=== PATIENT | female | born 1965 | race Caucasian/White ===

== ENCOUNTER 2024-10-10 09:51 | Outpatient (OUT) | payer SELFPAY ==
--- NOTE | 2024-10-10 10:14 | XR_ITS ---
The [address] [address] Patient Name: RIAZ FRAGA MRN: [id number] date: 1965 Sex: F Assigned Patient Location: LAB Current Patient Location: LAB Accession/Order Number: [id number] Exam Date: 10/10/2024 10:58 Report Date: 10/10/2024 10:59 At the request of: NON-STAFF PHYSICIAN MD Procedure: XR shoulder RT min 2V RIGHT SHOULDER - 3 views CLINICAL HISTORY: Right shoulder pain, stiffness and decreased range of motion for the past few months. No injury. COMPARISON: None AP, Y and Grashey views were obtained. A small bone island is visualized at the humeral head. There is no acute fracture or dislocation. There is minor hypertrophy at the acromioclavicular joint and minimal sclerosis of greater tuberosity. There are no significant soft tissue abnormalities. XR/XR shoulder RT min 2V IMPRESSION: NO ACUTE BONY FINDINGS. Impression dictated by: Radha Ledesma M.D. 10/10/2024 10:59 AM Dictation Location: [place] [address] Electronically authenticated by: [id number] Y Date: 10/10/2024 10:59
== END 2024-10-10 09:52 | disposition home or self-care (01) ==
LOC: LAB 09:56
DX: Z00.00 Encounter for general adult medical examination without abnormal findings (principal); M54.2 Cervicalgia; I10 Essential (primary) hypertension; I73.9 Peripheral vascular disease, unspecified; E78.00 Pure hypercholesterolemia, unspecified; F41.9 Anxiety disorder, unspecified; E03.9 Hypothyroidism, unspecified; Z72.0 Tobacco use; M75.41 Impingement syndrome of right shoulder
CPT/HCPCS: 36415; 73030; 80053; 80061; 82306; 83036; 84439; 84443; 84550; 85025

== ENCOUNTER 2024-12-01 08:38 | Outpatient (OUT) | payer SELFPAY ==
--- OUTSIDE RECORDS SUMMARY | 2023-07-16 11:09 | XMS_ITS ---
Author Organization The [facility] in [place] Address [address] [place] [address] Care Team Providers Care Museum Guide Name Role Phone None, Unknown or Primary Care Provider Unavailab Reggie Kumar Unavailable [phone] Medications Medication SIG (Take, Route, Frequency, Duration) Notes Start Date End Date Status Cipro 500 MG 1 tablet Orally every 12 hrs for 5 days 07/16/2023 Active Encounters Encounter Location Date Provider Diagnosis [facility] [address] [place] [address] 07/16/2023 Reggie Carrillo Plan Of Treatment Medication Medication Name Sig Start Date Stop Date Notes Cipro 500 MG 1 tablet Orally every 12 hrs for 5 days 07/15 Progress Notes * Shayla SNYDER MDOB:[birth year] (57 yo F)Acc No.[id number]:07/16/2023 Patient: Zulay bhattShayla :1965 A ge:57 Y S ex:Female Address:[address] [place], [address] * Refills Start Cipro Tablet, 500 MG, Orally, 10 Tablet, 1 tablet, every 12 hrs, 5 days, Refills=0 * true * Date: Generated for Printi ng/Faxing/eTransmitting on: 0 12/01/2024 08:41 AM EDT
--- OUTSIDE RECORDS SUMMARY | 2023-07-23 08:20 | XMS_ITS ---
Author Organization [facility] in [place] Address [address] [place] [address] Care Team Providers Care Belt Sander Stone Name Role Phone None, Unknown or Primary Care Provider Unavailab Reggie Kumar Unavailable [phone] REASON FOR VISIT Suture removal Encounters Encounter Location Date Provider Diagnosis [facility] [address] [place] [address] 07/23/2023 Reggie Carrillo Dermatochalasis of right upper eyelid H02.831 and Dermatochalasis of left upper eyelid H02.834 Assessments Encounter Date Diagnosis (ICD Code) Assessment Notes Treatment Notes Treatment Clinical Notes Section Notes 07/23/2023 Dermatochalasis of right upper eyelid (ICD-10 - H02.831) DOING WELL USE OINT BID X 3 DAYS 07/23/2023 Dermatochalasis of left upper eyelid (ICD-10 - H02.834) Plan Of Treatment Treatment Notes Assessment Notes Dermatochalasis of right upper eyelid DOING WELL USE OINT BID X 3 DAYS Progress Notes * Shayla SNYDER MDOB:[birth year] (57 yo F)Acc No.[id number]:07/23/2023 Vision Suture Removal Patient: Zulay Shayla bhatt Provider: Ada Carrillo MD :1965 A ge:57 Y S ex:Female Date:07/23/2023 Address:[address] [place], [place] Pcp:Skyla Dave Check In:12:02 PM ESTCheck O ut:01:21 PM EST Subjective: * Chief Complaints: * S uture removal * Active Problem List F43.[address] ress Modified On:08/01/2016 Status:confirmed I10 Essential Hypertensi on Modified On:08/15/2022 Status:confirmed F41.9 Anxiety Modified On:08/15/2022 Status:confirmed M75.20 Biceps tendonitis, u nspecified laterality Modified On:08/01/2016 Status:confirmed G56.00 Carpal tunnel syndro me, unspecified laterality Modified On:08/01/2016 Status:confirmed H61.20 Impacted cerumen, un specified laterality Modified On:08/01/2016 Status:confirmed F32.9 Depression, unspecif ied depression type Modified On:08/01/2016 Status:confirmed D23.39 Dermoid cyst of skin of nose Modified On:08/01/2016 Status:confirmed R10.13 Dyspepsia Modified On:08/01/2016 Status:confirmed K21.9 Gastroesophageal ref lux disease, esophagitis presence not specified Modified On:08/01/2016 Status:confirmed I10 Essential hypertensi on Modified On:08/01/2016 Status:confirmed H69.80 Eustachian tube dysf unction, unspecified laterality Modified On:08/01/2016 Status:confirmed E78.5 Hyperlipidemia, unsp ecified hyperlipidemia type Modified On:06/30/2022 Status:confirmed E03.9 Hypothyroidism, unsp ecified type Modified On:10/17/2021 Status:confirmed E66.9 Obesity, unspecified obesity severity, unspecified obesity type Modified On:10/17/2021 Status:confirmed L82.1 Seborrheic keratosis Modified On:08/01/2016 Status:confirmed J32.9 Chronic sinusitis, u nspecified location Modified On:08/01/2016 Status:confirmed G56.01 Carpal tunnel syndro me on right Modified On:08/01/2016 Status:confirmed R20.2 Paresthesia of skin Modified On:08/22/2016U Status:confirmed R91.1 Lung nodule Modified On:10/02/2016U Status:confirmed G56.01 Carpal tunnel syndro me of right wrist Modified On:10/12/2016U Status:confirmed M17.0 Primary osteoarthrit is of both knees Modified On:12/11/2016U Status:confirmed M65.331 Trigger middle finge r of right hand Modified On:11/27/2016U Status:confirmed M17.11 Primary osteoarthrit is of right knee Modified On:11/27/2016U Status:confirmed M17.12 Primary osteoarthrit is of left knee Modified On:01/09/2017U Status:confirmed Z72.0 Tobacco abuse Modified On:08/15/2022U Status:confirmed M65.4 De Quervain's tenosy novitis, left Modified On:08/23/2017U Status:confirmed S63.8X2A Tear of left scaphol unate ligament, initial encounter Modified On:12/19/2017U Status:confirmed B07.0 Plantar wart, left f oot Modified On:12/06/2018U Status:confirmed M25.571 Right ankle pain, un specified chronicity Modified On:11/27/2019U Status:confirmed F17.210 Nicotine dependence, cigarettes, uncomplicated Modified On:05/09/2022U Status:confirmed I73.9 PVD (peripheral vasc ular disease) Modified On:08/15/2022U Status:confirmed H02.831 Dermatochalasis of r ight upper eyelid Modified On:05/01/2023U Status:confirmed H02.834 Dermatochalasis of l eft upper eyelid Modified On:05/01/2023U Status:confirmed * Medical History: * Surgical History: * Ocular Surgical History: * Hospitalization/Major Diagno stic Procedure: * Medications: Objective: Assessment: * Assessment: 1. D ermatochalasis of right upper eyelid - H02.831 2 . D ermatochalasis of left upper eyelid - H02.834 Plan: * Treatment: * Procedure Codes: 9 9024 POST OP VISIT * * Sign off status: Completed Visit Status: C HK (Check Out) true * Provider: Ada Carrillo MD Date: 0 07/23/2023 Generated for Low rocha/Boo/Lynette on: 0 12/01/2024 08:43 AM EDT
--- OUTSIDE RECORDS SUMMARY | 2023-10-30 09:20 | XMS_ITS ---
Author Organization The [facility] in [place] Address [address] [place] [address] Care Team Providers Care Home Care Coordinator Name Role Phone None, Unknown or Primary Care Provider Unavailab Reggie Kumar Unavailable [phone] Allergies Allergen (clinical drug ingredient) Drug/Non Drug Allergy documented on EMR Reaction Allergy Type Onset Date Status SEASONAL (uncoded) Unknown Allergy Active Sulfa THROAT CONSTRICT ION YRS AGO Drug Allergy Active Penicillin THROAT CONSTRICT ION YRS AGO Drug Allergy Active REASON FOR VISIT S/P BLEPH 3MO Medications Medication SIG (Take, Route, Frequency, Duration) Notes Start Date End Date Status Cipro 500 MG 1 tablet Orally ever y 12 hrs for 5 days 07/16/2023 Active Levothyroxine Sodium 112 MCG 1 tablet in the morning on an empty stomach Orally Once a day for 90 days Active Cipro 500 MG 1 tablet Orally ever y 12 hrs for 3 day(s) 07/16/2023 Active Losartan Potassium 100 mg TAKE ONE TABLE T BY MOUTH EVERY DAY FOR BLOOD PRESSURE for 90 Active Pletal Active Aspirin 81 MG 1 tablet Orally Once a day for 90 days 08/15/2022 Active Xanax 0.25 MG 1 tablet Orally Maria Del Rosario y PRN for 30 days prn 09/26/2022 Active Gabapentin 300 MG 1 capsule Orally Onc e a day for 30 day(s) 08/25/2022 Not-Taking amLODIPine Besylate 2.5 MG Take 1 Tablet by mouth everyday FOR BLOOD PRESSURE Orally Once a day for 90 days Not-Taking Fluticasone Propionate 50 MCG/ACT 1 spray in each nostril Nasally Once a day for 30 day(s) 03/20/2019 Not-Taking Rosuvastatin Calcium 10 MG 1 tablet Oral ly Once a day for 90 days 08/15/2022 Active Encounters Encounter Location Date Provider Diagnosis [facility] [address] [place] [address] 10/30/2023 Reggie Carrillo S/p bilateral blepharoplasty Z98.890 Assessments Encounter Date Diagnosis (ICD Code) Assessment Notes Treatment Notes Treatment Clinical Notes Section Notes 10/30/2023 S/p bilateral blepharoplasty (ICD-10 - Z98.890) yonathan referral. patient doing well. f/u w/ Dr Elliott Plan Of Treatment Treatment Notes Assessment Notes S/p bilateral blepharoplasty patient doi ng well. f/u w/ Dr Elliott Next Appt Details Follow Up: prn, Reason: SEE DR ELLIOTT Progress Notes * Shayla SNYDER MDOB:[birth year] (58 yo F)Acc No.[id number]:10/30/2023 Patient: Zulay GARZAShayla Provider: Ada Carrillo MD :1965 A ge:58 Y S ex:Female Date:10/30/2023 Address:[address] [place], [place] [address] Pcp:Skyla Dave Check In:01:10 PM ESTCheck O ut:01:40 PM EST Subjective: * Chief Complaints: * S /P BLEPH 3MO * HPI: G eneral: F/U S/P BILAT BLEPH 07/16/23 C/O BUMPY APPEARANCE RUL>JACQUELYN DOING WELL OTHERWISE IS WONDERING IF SHE NEEDS TO ADDRESS NO GTTS. * Active Problem List F43.[address] ress Modified On:08/01/2016W/U Status:confirmed I10 Essential Hypertensi on Modified On:08/15/2022/U Status:confirmed F41.9 Anxiety Modified On:08/15/2022/U Status:confirmed M75.20 Biceps tendonitis, u nspecified laterality Modified On:08/01/2016W/U Status:confirmed G56.00 Carpal tunnel syndro me, unspecified [...] Modified On:08/22/2016U Status:confirmed R91.1 Lung nodule Modified On:10/02/2016 Status:confirmed G56.01 Carpal tunnel syndro me of right wrist Modified On:10/12/2016 Status:confirmed M17.0 Primary osteoarthrit is of both [...] B07.0 Plantar wart, left f oot Modified On:12/06/2018/U Status:confirmed M25.571 Right ankle pain, un specified chronicity Modified On:11/27/2019/U Status:confirmed F17.210 Nicotine dependence, cigarettes, uncomplicated Modified On:05/09/2022U Status:confirmed I73.9 PVD (peripheral vasc ular disease) Modified On:08/15/2022U Status:confirmed H02.831 Dermatochalasis of r ight upper eyelid Modified On:05/01/2023/U Status:confirmed H02.834 Dermatochalasis of l eft upper eyelid Modified On:05/01/2023U Status:confirmed * Medical History: * Surgical History: * Ocular Surgical History: * Hospitalization/Major Diagno stic Procedure: * Medications: T akingAspirin 81 MG Tablet Delayed Release 1 tablet Orally Once a day Cipro(Ciprofloxacin HCl) 500 MG Tablet 1 tablet Orally every 12 hrs Cipro(Ciprofloxacin HCl) 500 MG Tablet 1 tablet Orally every 12 hrs Levothyroxine Sodium 112 MCG Tablet 1 tablet in the morning on an empty stomach Orally Once a day Losartan Potassium 100 mg Tablet TAKE ONE TABLET BY MOUTH EVERY DAY FOR BLOOD PRESSURE Pletal Rosuvastatin Calcium 10 MG Tablet 1 tablet Orally Once a day Xanax(ALPRAZolam) 0.25 MG Tablet 1 tablet Orally Daily PRN , Notes to Pharmacist: prnTaking Aspirin 81 MG Tablet Delayed Release 1 tablet Orally Once a day Taking Cipro(Ciprofloxacin HCl) 500 MG Tablet 1 tablet Orally every 12 hrs Taking Cipro(Ciprofloxacin HCl) 500 MG Tablet 1 tablet Orally every 12 hrs Taking Levothyroxine Sodium 112 MCG Tablet 1 tablet in the morning on an empty stomach Orally Once a day Taking Losartan Potassium 100 mg Tablet TAKE ONE TABLET BY MOUTH EVERY DAY FOR BLOOD PRESSURE Taking Pletal Taking Rosuvastatin Calcium 10 MG Tablet 1 tablet Orally Once a day Taking Xanax(ALPRAZolam) 0.25 MG Tablet 1 tablet Orally Daily PRN , Notes to Pharmacist: prnNot-Taking/PRNamLODIPine Besylate 2.5 MG Tablet Take 1 Tablet by mouth everyday FOR BLOOD PRESSURE Orally Once a day Fluticasone Propionate 50 MCG/ACT Suspension 1 spray in each nostril Nasally Once a day Gabapentin 300 MG Capsule 1 capsule Orally Once a day Not-Taking/PRN amLODIPine Besylate 2.5 MG Tablet Take 1 Tablet by mouth everyday FOR BLOOD PRESSURE Orally Once a day Not-Taking/PRN Fluticasone Propionate 50 MCG/ACT Suspension 1 spray in each nostril Nasally Once a day Not-Taking/PRN Gabapentin 300 MG Capsule 1 capsule Orally Once a day * Allergies: P enicillin: THROAT CONSTRICTION YRS AGOSulfa: THROAT CONSTRICTION YRS AGOSEASONALno[Allergies Verified] Objective: * Vitals: Vision Examination: Aided Acuities OD 20/20-- OLDER GLS OS 20/20 OU 20/20 ? Assessment: * Assessment: 1. S /p bilateral blepharoplasty - Z98.890 (Primary), yonathan referral. Plan: * Treatment: * Procedure Codes: 9 9024 POST OP VISIT * Follow Up: p rn (Reason: SEE DR ELLIOTT) * * Sign off status: Completed Visit Status: C HK (Check Out) true * Provider: Ada Carrillo MD Date: 0 10/30/2023 Generated for Low rocha/Boo/Lynette on: 0 12/01/2024 08:43 AM EDT History and Physical Notes * HPI (History of Present Illness) Category Sub-Category Detail Notes Category Not es General F/U S/P BILAT BLEPH 07/16/23 C/O BUMPY APPEARANCE RUL>JACQUELYN DOING WELL OTHERWISE IS WONDERING IF SHE NEEDS TO ADDRESS NO GTTS
--- OUTSIDE RECORDS SUMMARY | 2024-12-01 08:42 | XMS_ITS | Encounter Summary ---
Author Organization [employer] Address [facility] [address] [place] [address] Care Team Providers Care Senior Marketing Engineer Name Role Phone Skyla Gonzales MD Primary Care Provider [phone] Encounter Details Date Type Department Care Team (Late st Contact Info) Description 12/13/2022 Orders Only [facility] [address] [place] [id number] Ref Prov, [place] [address] Social History Tobacco Use Types Packs/Day Years Used Date Smoking Tobacco: Every Day Cigarettes Smokeless Tobacco: Never Alcohol Use Standard Drinks/Week Comments Never 0 (1 standard drink = 0.6 oz pur e alcohol) Childcare Answer Date Recorded Childcare Unknown 10/22/2018 Employment Answer Date Recorded Employment Unknown 10/22/2018 Purpose - Life Answer Date Recorded Purpose and direction in life Unknown Comments Unknown Sex and Gender Information Value Date Recorded Sex Assigned at Female 12/07/2022 12:11 PM EDT Legal Sex Female 9:03 PM EDT Gender Identity Female 08/16/2022 1:40 PM EDT Sexual Orientation Straight 12/07/2022 12 :11 PM EDT documented as of this encounter Plan of Treatment Upcoming Encounters Date Type Department Care Team (Late st Contact Info) Description 04/22/2025 11:00 AM EST Office Visit [facility] [address] [address] Skyla Gonzales MD [address], [address] [address] documented as of this encounter Visit Diagnoses Not on filedocumented in this encounter Care Teams Senior Marketing Engineer Relationship Specialty Start Date End Date Skyla Gonzales MD [address], [address] [address] PCP - General 02/21/13 documented as of this encounter
--- OUTSIDE RECORDS SUMMARY | 2024-12-01 08:42 | XMS_ITS | Patient Health Record ---
Author Organization The [facility] in [place] Address [address] [place] [address] Care Team Providers Care Material Analyst Name Role Phone None, Unknown or Primary Care Provider Unavailab le Allergies Allergen (clinical drug ingredient) Drug/Non Drug Allergy documented on EMR Reaction Allergy Type Onset Date Status SEASONAL (uncoded) Unknown Allergy Active Sulfa THROAT CONSTRICT ION YRS AGO Drug Allergy Active Penicillin THROAT CONSTRICT ION YRS AGO Drug Allergy Active Reason For Referral No Information Medications Medication SIG (Take, Route, Frequency, Duration) Notes Start Date End Date Status Cipro 500 MG 1 tablet Orally ever y 12 hrs for 5 days 07/16/2023 Active Levothyroxine Sodium 112 MCG 1 tablet in the morning on an empty stomach Orally Once a day for 90 days Active Aspirin 81 MG 1 tablet Orally Once a day for 90 days 08/15/2022 Active Cipro 500 MG 1 tablet Orally ever y 12 hrs for 3 day(s) 07/16/2023 Active Rosuvastatin Calcium 10 MG 1 tablet Oral ly Once a day for 90 days 08/15/2022 Active Xanax 0.25 MG 1 tablet Orally Maria Del Rosario y PRN for 30 days prn 09/26/2022 Active Losartan Potassium 100 mg TAKE ONE TABLE T BY MOUTH EVERY DAY FOR BLOOD PRESSURE for 90 Active Pletal Active Gabapentin 300 MG 1 capsule Orally Onc e a day for 30 day(s) 08/25/2022 Not-Taking amLODIPine Besylate 2.5 MG Take 1 Tablet by mouth everyday FOR BLOOD PRESSURE Orally Once a day for 90 days Not-Taking Fluticasone Propionate 50 MCG/ACT 1 spray in each nostril Nasally Once a day for 30 day(s) 03/20/2019 Not-Taking Immunizations Vaccine Route Administration Date Status Comme nts Flu, Fluzone (24525) 6 mos+, single-dose syringe/vial (8790-5063) Intramuscular 03/23/2015 Pending 23 Mar 2015 Flu, Fluzone (31717) 6 mos+, single-dose syringe/vial (7944-3302) IM Intramuscular 03/20/2019 Administered Pneumococcal (Prevnar 13) Intramuscular 01/21/2015 Pending [id number] 04:55PM Td, Adult, absorbed IM Intramuscular 05/09/2022 Administer ed Tdap Intramuscular 08/02/2011 Pending [id number] 08:29AM Social History Tobacco Use: Social History Observation Description Date Details (start date - stop date) Current Smoker NA - NA Tobacco Use/Smoking Question Answer Notes Patient is a current smoker How many cigarettes a day do you smoke? 6-10 How soon after you wake up do you smoke your fir st cigarette? 31-60 minutes Alcohol Screen (Audit-C) Question Answer Notes Did you have a drink containing alcohol in the p ast year? No Points 0 Interpretation Negative Section Notes: OCCAS SMOKING, INTERMITTANT Problems Problem Type SNOMED Code ICD Code Onset Dates Problem Status W/U Status Risk Notes Problem 25947924 Nicotine dependence, cigarettes, uncomplicated (F17.210) Active confirmed Problem 50750804589458812 Dermatochalasi s of right upper eyelid (H02.831) Active confirmed Problem 903215047902031 Dermatochalasis of left upper eyelid (H02.834) Active confirmed Problem 02611196 Paresthesia of s kin (R20.2) Active confirmed Problem 575714002 PVD (peripheral vascular disease) (I73.9) Active confirmed Problem 22436167 Anxiety (F41.9) Active confirmed Problem 10955611 Essential hypertension (I10) Active confirmed Problem 045273813 Primary osteoarthritis of right knee (M17.11) Active confirmed Problem 250518457 Tobacco abuse (Z72.0) Active confirmed Problem 852310227 Primary osteoarthritis of left knee (M17.12) Active confirmed Problem 721705930 Gastroesophageal reflux disease, esophagitis presence not specified (K21.9) Active confirmed Problem 051103351 Obesity, unspecified obesity severity, unspecified obesity type (E66.9) Active confirmed Problem 738273390 Primary osteoarthritis of both knees (M17.0) Active confirmed Problem 768167910327296 Carpal tunnel syndrome of right wrist (G56.01) Active confirmed Problem 652281260 Lung nodule (R91.1) Active confirmed Problem 622707993 Seborrheic keratosis (L82.1) Active confirmed Problem 593252693 Trigger middle finger of right hand (M65.331) Active confirmed Problem 30686510 Chronic sinusiti s, unspecified location (J32.9) Active confirmed Problem 34356175 Carpal tunnel syndrome, unspecified laterality (G56.00) Active confirmed Problem 58475575233215863 De Quervain's tenosynovitis, left (M65.4) Active confirmed Problem 17951204750852963 Plantar wart, left foot (B07.0) Active confirmed Problem 00578961 Impacted cerumen , unspecified laterality (H61.20) Active confirmed Problem 371557680 Dyspepsia (R10.13) Active confirmed Problem 05560824 Hyperlipidemia, unspecified hyperlipidemia type (E78.5) Active confirmed Problem 08695897 Hypothyroidism, unspecified type (E03.9) Active confirmed Problem 41140818 Depression, unspecified depression type (F32.9) Active confirmed Problem 431236979 Right ankle pain , unspecified chronicity (M25.571) Active confirmed Problem 379475335001858 Carpal tunnel syndrome on right (G56.01) Active confirmed Problem 50781630 Eustachian tube dysfunction, unspecified laterality (H69.80) Active confirmed Problem 98544456 Essential Hypertension (I10) Active confirmed Problem 91667665 Acute reaction t o stress (F43.0) Active confirmed Problem 846884289 Biceps tendoniti s, unspecified laterality (M75.20) Active confirmed Problem 264573275 Dermoid cyst of skin of nose (D23.39) Active confirmed Problem 879413375 Tear of left scapholunate ligament, initial encounter (S63.8X2A) Active confirmed Plan Of Treatment Pending Test Test Name Order Date MG Mammo Digital Screening Bilateral* CLARISSE Ankle Brachial Index (66564) 023 Future Test Test Name Order Date CBC w/ Diff 03/11/2021 CMP - Comprehensive Metabolic Panel 02/12 Lipid Panel 03/11/2021 Magnesium Level 03/11/2021 TSH - Thyroid Stimulating Hormone 2020 Uric Acid 03/11/2021 Free T4 03/11/2021 Hemoglobin Hgb A1c (LC) 03/11/2021 CBC w/ Diff 04/18/2022 CMP - Comprehensive Metabolic Panel 10/2021 Lipid Panel 04/18/2022 TSH - Thyroid Stimulating Hormone 2021 Uric Acid 04/18/2022 Free T4 04/18/2022 Vitamin D, 25-Hydroxy 04/18/2022 Hemoglobin A1C (HA1C) 04/18/2022 Lipid Panel 10/28/2022 CMP - Comprehensive Metabolic Panel 08/2022 Creatine Kinase 11/14/2022 Lipid Panel 11/14/2022 Insurance Providers Payer Name Payer Address Payer Phone Subscriber Number Group Number Insured Name Patient Relationship to Insured Coverage Start Date Coverage End Date [facility] [address] [place] [address] [id number] Shayla Snyder Self - patient is the insured 3 Medications Administered Medication Instructions Date of Administration Dosage Notes Depo-Medrol, 20 mg/mL 10/11/2016 20 mg Depo-Medrol, 40 mg/mL 10/11/2016 40 mg Depo-Medrol, 40 mg/mL 06/05/2017 0.5 mL Depo-Medrol, 40 mg/mL 11/01/2017 0.5 mL Orthovisc 30mg/2mL 11/24/2016 30 mg Orthovisc 30mg/2mL 11/24/2016 30 mg Orthovisc 30mg/2mL 12/01/2016 30 mg Orthovisc 30mg/2mL 12/01/2016 30 mg Orthovisc 30mg/2mL 12/08/2016 30 mg Orthovisc 30mg/2mL 12/08/2016 30 mg Medical (General) History Medical History History ICD Code Acute reaction to stress F43.0 Essential Hypertension I10 Anxiety F41.9 Biceps tendonitis, unspecified lateralit y M75.20 Carpal tunnel syndrome, unspecified late rality G56.00 Impacted cerumen, unspecified laterality H61.20 Depression, unspecified depression type F32.9 Dermoid cyst of skin of nose D23.39 Dyspepsia R10.13 Gastroesophageal reflux disease, esophag itis presence not specified K21.9 Essential hypertension I10 Eustachian tube dysfunction, unspecified laterality H69.80 Hyperlipidemia, unspecified hyperlipidem ia type E78.5 Hypothyroidism, unspecified type E03.9 Obesity, unspecified obesity severity, u nspecified obesity type E66.9 Seborrheic keratosis L82.1 Chronic sinusitis, unspecified location J32.9 Carpal tunnel syndrome on right G56.01 Surgical History Surgery Date(Month/Year) cyst removed rt thigh 02/2019 LT wristt surgery 12/2018 tonsillectomy and adenoidectomy oopherectomy hysterectomy Knee arthroscopy hemorrhoidectomy Elbow surgery Cervical vertebral fusion Hospitalization History Reason Date(Month/Year) SEE SURG HX
--- NOTE | 2024-12-01 08:43 | CT_ITS ---
[address] [address] Patient Name: RIAZ FRAGA MRN: [id number] date: 1965 Sex: F Assigned Patient Location: [facility] Current Patient Location: [facility] Accession/Order Number: [id number] Exam Date: 12/01/2024 09:29 Report Date: 12/01/2024 10:00 At the request of: NON-STAFF PHYSICIAN MD Procedure: CT lung screening low-dose CT CHEST WITHOUT CONTRAST, LOW DOSE SCREENING: CLINICAL DATA: A 59-year old former smoker, COMPARISON: None TECHNIQUE: Noncontrast axial CT scan images of the chest were obtained under the low dose screening CT protocol. Coronal and sagittal reconstructed images were also submitted. FINDINGS: Mediastinum : Suboptimal evaluation due to low-dose technique. Thoracic aorta appears normal in caliber. Pulmonary trunk appears nondilated. No pericardial effusion. No lymphadenopathy. The esophagus is grossly unremarkable. Lungs: No focal consolidation, pneumothorax or pleural effusion. Trachea and distal airways appear patent. Emphysema. Mild bronchial wall thickening. Mild lung scarring. No suspicious noncalcified pulmonary nodule or mass. Upper abdomen: No acute findings. Bony thorax and chest wall: Soft tissues surrounding the chest wall demonstrate no acute findings. Osseous structures demonstrate degenerative change. CT/CT lung screening low-dose IMPRESSION: NO SUSPICIOUS PULMONARY NODULE LUNG - RADS Version 1.0 Assessment: Category 1, Negative (No nodules and definitely benign nodules). Management: Continue annual lung screening with LDCT in 12 months. Impression dictated by: Gregory Womack Jr., D.O. 12/01/2024 10:00 AM Dictation Location: [place] [address] Electronically authenticated by: [id number] Y Date: 12/01/2024 10:00
--- NOTE | 2024-12-01 08:43 | MM_ITS ---
Patient Name: RIAZ FRAGA MR#: [id number] : 1965 Exam Date: 12/01/2024 Ordering Doctor: NON-STAFF PHYSICIAN RADIOLOGY REPORT PROCEDURE: MM TOMOSYNTHESIS SCREENING BI COMPARISON: MAMMO KARLA SCREEN, 09/05/2023. INDICATIONS: Screening Calculator Name NCI Breast Cancer Risk Assessment Tool 5 Year Breast Cancer Risk Not Reported. Lifetime Breast Cancer Risk Not Reported. Personal Breast Cancer No Personal Ovarian Cancer No Treatments None Family Cancers None LOCATION: [facility] BREAST COMPOSITION: There are scattered areas of fibroglandular density. FINDINGS: DIAGNOSTIC CATEGORY 1--NEGATIVE. RIGHT BREAST: No significant suspicious finding. LEFT BREAST: No significant suspicious finding. RECOMMENDATIONS: ROUTINE MAMMOGRAM AND CLINICAL EVALUATION IN 12 MONTHS. PLEASE NOTE: A NORMAL MAMMOGRAM DOES NOT EXCLUDE THE POSSIBILITY OF BREAST CANCER. A CLINICALLY SUSPICIOUS PALPABLE LUMP SHOULD BE BIOPSIED. Dictated by: Gregory Womack DO on 12/02/2024 at 15:46 Approved by: Gregory Womack DO on 12/02/2024 at 15:49
--- OUTSIDE RECORDS SUMMARY | 2024-12-01 08:43 | XMS_ITS | Encounter Summary ---
Author Organization [employer] Address [id number] [address] [place] [address] Care Team Providers Care Cavity Pump Operator Name Role Phone Skyla Gonzales MD Primary Care Provider +1- [phone] Encounter Details Date Type Department Care Team (Late st Contact Info) Description 05/02/2023 Orders Only [facility] [address] [facility] [place] [phone] America Leblanc CMA Social History Tobacco Use Types Packs/Day Years Used Date Smoking Tobacco: Every Day Cigarettes Smokeless Tobacco: Never Alcohol Use Standard Drinks/Week Comments Never 0 (1 standard drink = 0.6 oz pur e alcohol) Childcare Answer Date Recorded Childcare Unknown 10/22/2018 Employment Answer Date Recorded Employment Unknown 10/22/2018 Hunger Screening Answer Date Recorded Within the past 12 months we worried whether our food would run out before we got money to buy more. Never True 05/04/2023 Within the past 12 months th e food we bought just didn't last and we didn't have money to get more. Never True 05/04/2023 Purpose - Life Answer Date Recorded Purpose and direction in life Unknown Comments No Sex and Gender Information Value Date Recorded [...] [facility] [address] [facility] [address] [place] [address] Skyla Gonzales MD [address] [facility] [address] [place] [address] documented as of this encounter Procedures Procedure Name Priority Date/Time Associated Diagnosis Comments CT LOW DOSE LUNG SCREENING Routine 08/23/2022 MAMMOGRAPHY Routine 08/15/2022 COLONOSCOPY Routine 10/27/2015 documented in this encounter Results * CT low dose lung screening (Annual) (08/23/2022) Anatomical Region Laterality Modality Body, Lung, Chest, Body Covera C omputed Tomography us Scanning Provider External IMG CT ORDERABLES Fin al Result * MAMMOGRAPHY (08/15/2022) Anatomical Region Laterality Modality Other us Scanning Provider External HEALTH MAINTENANCE Fi nal Result * COLONOSCOPY (10/27/2015) us Scanning Provider External HEALTH MAINTENANCE Fi nal Result MANUALLY TRANSCRIBED LAB RESULTS documented in this encounter Visit Diagnoses Not on filedocumented in this encounter Care Teams Cavity Pump Operator Relationship Specialty Start Date End Date Skyla Gonzales MD [address], [address] [address] PCP - General 02/21/13 documented as of this encounter
--- OUTSIDE RECORDS SUMMARY | 2024-12-01 08:43 | XMS_ITS | Encounter Summary ---
Author Organization [employer] Address [id number] [address] [place] [address] Care Team Providers Care Bank Vault Attendant Name Role Phone Skyla Gonzales MD Primary Care Provider +1- [phone] Encounter Details Date Type Department Care Team (Late st Contact Info) Description 08/15/2022 Telephone [facility] [address] [place] [address] Mallika Andersen CMA Social History Tobacco Use Types Packs/Day Years Used Date Smoking Tobacco: Never Assessed Childcare Answer Date Recorded Childcare Unknown 10/22/2018 [...] Orientation Straight 12/07/2022 12 :11 PM EDT COVID-19 Exposure Response Date Recorded In the last month, have you been in contact with someone who was confirmed or suspected to have Coronavirus / COVID-19? No / Unsure 08/15/2022 5:16 PM EDT documented as of this encounter Plan of Treatment Upcoming Encounters Date Type Department Care Team (Late st Contact Info) Description 04/22/2025 11:00 AM EST Office Visit [facility] [address] [facility] [address] [place] [address] Skyla Gonzales MD [address], [facility] [address] [place] [address] documented as of this encounter Visit Diagnoses Not on filedocumented in this encounter Care Teams Bank Vault Attendant Relationship Specialty Start Date End Date Skyla Gonzales MD [address], [facility] [address] [place] [address] PCP - General 02/21/13 documented as of this encounter
--- OUTSIDE RECORDS SUMMARY | 2024-12-01 08:43 | XMS_ITS | Encounter Summary ---
Author Organization [employer] Address [facility]-[id number] [address] [place] [address] Care Team Providers Care Filler Block Inserter Remover Name Role Phone Skyla Gonzales MD Primary Care Provider +1- [phone] Reason for Visit * Reason Onset Date Comments Med Refill 11/21/2024 Encounter Details Date Type Department Care Team (Late st Contact Info) Description 11/21/2024 Refill [facility] [address] [place] [address] Paola Lou LPN Anxiety Social History Tobacco Use Types Packs/Day Years Used Date Smoking Tobacco: Every Day Cigarettes Smokeless Tobacco: Never Comments:Occasional smoking no longer daily smoking Alcohol Use Standard Drinks/Week Comments Never 0 (1 standard drink = 0.6 oz pur e alcohol) PHQ-2 Answer Date Recorded Total Score 0 10/20/2024 Childcare Answer Date Recorded Childcare Unknown 10/22/2018 Employment Answer Date Recorded Employment Unknown 10/22/2018 Hunger Screening Answer Date Recorded Within the past 12 months we worried whether our food would run out before we got money to buy more. Never True 10/20/2024 Within the past 12 months th e food we bought just didn't last and we didn't have money to get more. Never True 10/20/2024 Purpose - Life Answer Date Recorded Purpose and direction in life Unknown Comments No Sex and Gender Information Value Date Recorded Sex Assigned at Female 12/07/2022 12:11 PM EDT Legal Sex Female 9:03 PM EDT Gender Identity Female 08/16/2022 1:40 PM EDT Sexual Orientation Straight 12/07/2022 12 :11 PM EDT documented as of this encounter Miscellaneous Notes * Telephone Encounter - Paola Lou LPN - 11/21/2024 9:39 AM EDT Refill alprazolam to dominic documented in this encounter Plan of Treatment Upcoming Encounters Date Type Department Care Team (Late st Contact Info) Description 04/22/2025 11:00 AM EST Office Visit [facility] [address] [facility] [address] [place] [address] Skyla Gonzales MD [address] [place] [address] documented as of this encounter Visit Diagnoses Diagnosis Anxiety Anxiety state, unspecified documented in this encounter Additional Health Concerns Assessment Noted Time PHQ-9 Depression Total Score: 0 10/21/19 25 11:01 AM EDT A Body Mass Index follow-up plan has been documented for the patient 10/20/2024 1:00 PM EDT documented as of this encounter Care Teams Filler Block Inserter Remover Relationship Specialty Start Date End Date Skyla Gonzales MD [address], [address] [place] [address] PCP - General 02/21/13 documented as of this encounter
--- OUTSIDE RECORDS SUMMARY | 2024-12-01 08:43 | XMS_ITS | Encounter Summary ---
Author Organization [facility] Address [facility]-[id number] [address] [place] [address] Care Team Providers Care Big Data Lead Name Role Phone Skyla Gonzales MD Primary Care Provider +1- [phone] Encounter Details Date Type Department Care Team (Late st Contact Info) Description 10/10/2024 Orders Only [facility] [address] [place] [address] Skyla Gonzales MD [address] [place] [address] Cervicalgia; Primary hypertension; PVD (peripheral vascular disease); Pure hypercholesterolemia; Anxiety; Acquired hypothyroidism; Tobacco use; Routine physical examination; Rotator cuff impingement syndrome of right shoulder Social History Tobacco Use Types Packs/Day Years Used Date Smoking Tobacco: Every Day Cigarettes Smokeless Tobacco: Never Comments:Occasional smoking no longer daily smoking Alcohol Use Standard Drinks/Week Comments Never 0 (1 standard drink = 0.6 oz pur e alcohol) PHQ-2 Answer Date Recorded Total Score 0 08/26/2024 Childcare Answer Date Recorded Childcare Unknown 10/22/2018 Employment Answer Date Recorded Employment Unknown 10/22/2018 Hunger Screening Answer Date Recorded Within the past 12 months we worried whether our food would run out before we got money to buy more. Never True 08/26/2024 Within the past 12 months th e food we bought just didn't last and we didn't have money to get more. Never True 08/26/2024 Purpose - Life Answer Date Recorded Purpose [...] Visit [facility] [address] [place] [address] Skyla Gonzales MD [address] [place] [address] documented as of this encounter Procedures Procedure Name Priority Date/Time Associated Diagnosis Comments XR SHOULDER RT MIN 2 VWS Routine 10/10/2024 Rotator cuff impingement syndrome of right shoulder CBC WITH AUTO DIFFERENTIAL Routine 10/10/2024 Cervicalgia Primary hypertension PVD (peripheral vascular disease) Pure hypercholesterolemia Anxiety Acquired hypothyroidism Tobacco use Routine physical examination VITAMIN D 25 HYDROXY Routine 10/10/2024 Cervicalgia Primary hypertension PVD (peripheral vascular disease) Pure hypercholesterolemia Anxiety Acquired hypothyroidism Tobacco use Routine physical examination URIC ACID Routine 10/10/2024 Cervicalgia Primary hypertension PVD (peripheral vascular disease) Pure hypercholesterolemia Anxiety Acquired hypothyroidism Tobacco use Routine physical examination TSH Routine 10/10/2024 Cervicalgia Primary hypertension PVD (peripheral vascular disease) Pure hypercholesterolemia Anxiety Acquired hypothyroidism Tobacco use Routine physical examination T4, FREE Routine 10/10/2024 Cervicalgia Primary hypertension PVD (peripheral vascular disease) Pure hypercholesterolemia Anxiety Acquired hypothyroidism Tobacco use Routine physical examination HEMOGLOBIN A1C Routine 10/10/2024 Cervicalgia Primary hypertension PVD (peripheral vascular disease) Pure hypercholesterolemia Anxiety Acquired hypothyroidism Tobacco use Routine physical examination LIPID PROFILE Routine 10/10/2024 Cervicalgia Primary hypertension PVD (peripheral vascular disease) Pure hypercholesterolemia Anxiety Acquired hypothyroidism Tobacco use Routine physical examination COMPREHENSIVE METABOLIC PANEL Routine 10/10/2024 Cervicalgia Primary hypertension PVD (peripheral vascular disease) Pure hypercholesterolemia Anxiety Acquired hypothyroidism Tobacco use Routine physical examination documented in this encounter Results * Vitamin D 25 hydroxy (10/10/2024) Blood 10/10/2024 us Skyla Dave MD LAB BLOOD ORDERABLES Final Result Performing Organization Address [facility] de Phone Number MANUALLY TRANSCRIBED RESULTS * T4, free (10/10/2024) Blood 10/10/2024 us Skyla Dave MD LAB BLOOD ORDERABLES Final Result Performing Organization Address [facility] de Phone Number MANUALLY TRANSCRIBED RESULTS * Uric acid (10/10/2024) Blood 10/10/2024 us Skyla Dave MD LAB BLOOD ORDERABLES Final Result Performing Organization Address [facility] Phone Number MANUALLY TRANSCRIBED RESULTS * TSH (10/10/2024) Blood 10/10/2024 Result [facility] Skyla Dave MD LAB BLOOD ORDERABLES Edite d Result - Final Performing Organization Address [facility] Phone Number MANUALLY TRANSCRIBED RESULTS * Hemoglobin A1c (10/10/2024) External Hemoglobin A1C 5.5 4.5 - 6.2 % MANUALLY TRANSCRIBED RESULTS Blood 10/10/2024 Result [facility] Skyla Dave MD LAB BLOOD ORDERABLES Edite d Result - Final Performing Organization Address [facility] Phone Number MANUALLY TRANSCRIBED RESULTS * (ABNORMAL) Lipid profile (10/10/2024) External Cholesterol 135 120 - 200 MANUALLY TRANSCRIBED RESULTS External Cholesterol:Hdl 2.0 1.0 - 5.0 MANUALLY TRANSCRIBED RESULTS External Hdl Cholesterol 68(A) <=60 MANUALLY TRANSCRIBED RESULTS External Ldl (Calc) 57.0 0 - 130 MANUALLY TRANSCRIBED RESULTS External Triglycerides 51 27 - 150 MANUALLY TRANSCRIBED RESULTS External Very Low Lipoprotein 10.2 0 - 30 MANUALLY TRANSCRIBED RESULTS Blood 10/10/2024 Result [facility] Skyla Dave MD LAB BLOOD ORDERABLES Edite d Result - Final Performing Organization Address [facility] de Phone Number MANUALLY TRANSCRIBED RESULTS * Comprehensive metabolic panel (10/10/2024) Blood 10/10/2024 Result [facility] us Skyla Dave MD LAB BLOOD ORDERABLES Edite d Result - Final Performing Organization Address [facility] de Phone Number MANUALLY TRANSCRIBED RESULTS * CBC auto differential (10/10/2024) Blood 10/10/2024 Skyla Dave MD LAB BLOOD ORDERABLES Final Result MANUALLY TRANSCRIBED RESULTS * X-ray shoulder right minimum 2 views (10/10/2024) Anatomical Region Laterality Modality MSK, Upper Extremities, Shoulder Right Computed Radiography Skyla Dave MD IMG DIAGNOSTIC IMAGING ORD ERABLES Final Result documented in this encounter Visit Diagnoses Diagnosis Cervicalgia Primary hypertension Unspecified essential hypertension PVD (peripheral vascular disease) Unspecified peripheral vascular disease Pure hypercholesterolemia Anxiety Anxiety state, unspecified Acquired hypothyroidism Unspecified hypothyroidism Tobacco use Routine physical examination [facility]ine [facility] Rotator cuff impingement syndrome of right shoulder documented in this encounter Additional Health Concerns Assessment Noted Time PHQ-9 Depression Total Score: 0 08/27/19 25 2:33 PM EDT A Body Mass Index follow-up plan has been documented for the patient 04/17/2024 7:14 PM EST documented as of this encounter Care Teams Big Data Lead Relationship Specialty Start Date End Date Skyla Gonzales MD [address], [address] [address] PCP - General 02/21/13 documented as of this encounter
--- OUTSIDE RECORDS SUMMARY | 2024-12-01 08:43 | XMS_ITS | Clinical Summary ---
Author Organization [employer] Address [id number] [address] [place] [address] Care Team Providers Care Body Service Team Member Name Role Phone Skyla Gonzales MD Primary Care Provider [phone] Allergies Active Allergy Reactions Criticality Noted Date Comments Penicillins Low 04/08/2021 Throat swelling Sulfa (Sulfonamide Antibiotics) Low 03/15 Throat swelling Medications cyclobenzaprine (FLEXERIL) 5 mg tabletIndicatio ns:Cervicalgia Take 1 tablet (5 mg total) by mouth every 8 (eight) hours as needed for muscle spasms. 30 tablet 1 4 Active aspirin 81 mgIndications:P eripheral vascular disease, unspecified TAKE 1 TABLET (81 MG TOTAL) BY MOUTH EVERY MORNING. 90 tablet 1 4 Active fluticasone propionate (FLONASE) 50 mcg/actuation nasal sprayIndication s:Acute non-recurrent maxillary sinusitis Administer 1 spray into each nostril in the morning. 15 g 2 5 Active rosuvastatin (CRESTOR) 10 mg tabletIndicatio ns:Peripheral vascular disease, unspecified Take 1 tablet (10 mg total) by mouth every morning. 90 tablet 1 5 Active levothyroxine (SYNTHROID, LEVOTHROID) 112 MCG tablet Take 1 tablet (112 mcg total) by mouth in the morning. 90 tablet 1 5 Active losartan (COZAAR) 50 mg tablet Take 1 tablet (50 mg total) by mouth in the morning. 90 tablet 1 5 Active ALPRAZolam (XANAX) 0.25 mg tabletIndicatio ns:Anxiety Take 1 tablet (0.25 mg total) by mouth nightly as needed for anxiety. 30 tablet 5 Active ALPRAZolam (XANAX) 0.25 mg tabletIndicatio ns:Anxiety Take 1 tablet (0.25 mg total) by mouth nightly as needed for anxiety. 30 tablet 5 11/22/19 25 Discontin ued(Reord er) Active Problems Problem Noted Date Diagnosed Date Lipoma 08/30/2023 Occlusive disease, arterial 08/21/2022 Encounters Date Type Department Care Team Description 11/21/2024 Refill [facility] [address] [place] [address] [place] [phone] Paola Lou LPN Anxiety 10/23/2024 Refill [facility] [address] [place] [phone] Skyla Gonzales MD 10/20/2024 11:00 AM EDT Office Visit [facility] [address] [place] [phone] Skyla Gonzales MD Primary hypertension (Primary Dx); Rotator cuff impingement syndrome of right shoulder; Tobacco use; PVD (peripheral vascular disease); Pure hypercholesterolemia; Anxiety; Encounter for screening mammogram for malignant neoplasm of breast; Acquired hypothyroidism 10/20/2024 Travel 10/18/2024 Travel 10/10/2024 Orders Only [facility] [address] [place] [phone] Skyla Gonzales MD Cervicalgia; Primary hypertension; PVD (peripheral vascular disease); Pure hypercholesterolemia; Anxiety; Acquired hypothyroidism; Tobacco use; Routine physical examination; Rotator cuff impingement syndrome of right shoulder 10/01/2024 Refill [facility] [address] [place] [phone] Carol Gutierrez LPN Anxiety from Last 3 Months Immunizations Immunization Administration Dates Next Due Influenza, Im Trivalent Preservative 03/23/2015 Influenza, Injectable, quadrivalent (PF) 019 Pneumococcal Conjugate 01/21/2015 Td (adult), 5 Lf tetanus tox oid, preservative free, adsorbed 05/09/2022 Tdap 08/02/2011 Zoster Vaccine Recombinant 03/08/2023,12/01/2022 Zoster, unspecified formulation 02/16/2023,12/01 Family History Medical History Relation Name Comments Multiple myeloma Brother Lung cancer Mother Anesthesia problems Neg Hx Breast cancer Neg Hx Relation Name Status Comments Brother Mother Social History Tobacco Use Types Packs/Day Years Used Date Smoking Tobacco: Every Day Cigarettes Smokeless Tobacco: Never Tobacco Cessation:Ready to Q uit: Not Asked; Counseling Given: Not Answered Comments:Occasional smoking no longer daily smoking Alcohol [...] Orientation Straight 12/07/2022 12 :11 PM EDT Last Filed Vital Signs Vital Sign Reading Time Taken Comments Blood Pressure 126/88 10/20/2024 11:00 AM EDT Pulse 82 10/20/2024 11:00 AM EDT Temperature 36 C (96.8 F) 08/17/2023 9:58 AM EDT Respiratory Rate 20 08/17/2023 9:58 AM EDT Oxygen Saturation 98% 10/20/2024 11:00 AM EDT Inhaled Oxygen Concentration - - Weight 68.5 kg (151 lb) 10/20/2024 11:00 AM EDT Height 157.5 cm (5' 2 ) 10/20/2024 11:00 AM EDT Body Mass Index 27.62 10/20/2024 11:00 AM EDT Plan of Treatment Upcoming Encounters Date Type Department Care Team (Late st Contact Info) Description 04/22/2025 11:00 AM EST Office Visit [facility] [address] [facility] [address] [place] [address] Skyla Gonzales MD [address] [place] [address] Health Maintenance Due Date Last Done Comments Pap Smear 1985 Influenza Vaccine 01/12/2025 03/20/2019, 03/23/2015 Adult BMI Follow Up Plan 10/20/2025 10/20/2024 Adult BMI Screening 10/20/2025 10/20/2024 Depression Screening 10/20/2025 10/20/2024 Tobacco Screening 10/20/2025 10/20/2024 Tobacco Counseling 02/25/2026 08/26/2024 DTaP,Tdap and Td Vaccines (3 - Td or Tdap) 05/09/2032 05/09/2022, 08/02/2011 Zoster (Shingles) Vaccine Completed 2022, 02/16/2023, 12/01/2022, Additional history exists Medical Devices Not on file Procedures Procedure Name Priority Date/Time Associated Diagnosis Comments VITAMIN D 25 HYDROXY Routine 10/10/2024 Cervicalgia [...] Acquired hypothyroidism Tobacco use Routine physical examination CBC WITH AUTO DIFFERENTIAL Routine 10/10/2024 Cervicalgia Primary hypertension PVD (peripheral vascular disease) Pure hypercholesterolemia Anxiety Acquired hypothyroidism Tobacco use Routine physical examination XR SHOULDER RT MIN 2 VWS Routine 10/10/2024 Rotator cuff impingement syndrome of right shoulder from Last 3 Months Results * X-ray shoulder right minimum 2 views (10/10/2024) Anatomical Region Laterality Modality MSK, Upper Extremities, Shoulder Right Computed Radiography us Skyla Dave MD IMG DIAGNOSTIC IMAGING ORD ERABLES Final Result * CBC auto differential (10/10/2024) Blood 10/10/2024 Skyla Dave MD LAB BLOOD ORDERABLES Final Result Performing Organization Address [facility] Phone Number MANUALLY TRANSCRIBED RESULTS * Vitamin D 25 hydroxy (10/10/2024) Blood 10/10/2024 Skyla Dave MD LAB BLOOD ORDERABLES Final Result Performing Organization Address [facility] Phone Number MANUALLY TRANSCRIBED RESULTS * Uric acid (10/10/2024) Blood 10/10/2024 Result [facility] Skyla Dave MD LAB BLOOD ORDERABLES Final Result Performing Organization Address [facility] Phone Number MANUALLY TRANSCRIBED RESULTS * TSH (10/10/2024) Blood 10/10/2024 Result [facility] Skyla Dave MD LAB BLOOD ORDERABLES Edite d Result - Final Performing Organization Address [facility] Phone Number MANUALLY TRANSCRIBED RESULTS * T4, free (10/10/2024) Blood 10/10/2024 Result [facility] Skyla Dave MD LAB BLOOD ORDERABLES Final Result Performing Organization Address [facility] Phone Number MANUALLY TRANSCRIBED RESULTS * Hemoglobin A1c (10/10/2024) External Hemoglobin A1C 5.5 4.5 - 6.2 % MANUALLY TRANSCRIBED RESULTS Blood 10/10/2024 Skyla Dave MD LAB BLOOD ORDERABLES Edite d Result - Final Performing Organization Address [facility] de Phone Number MANUALLY TRANSCRIBED RESULTS * (ABNORMAL) [...] - 30 MANUALLY TRANSCRIBED RESULTS Blood 10/10/2024 us Skyla Dave MD LAB BLOOD ORDERABLES Edite d Result - Final Performing Organization Address [facility] de Phone Number MANUALLY TRANSCRIBED RESULTS * Comprehensive metabolic panel (10/10/2024) Blood 10/10/2024 Skyla Dave MD LAB BLOOD ORDERABLES Edite d Result - Final Performing Organization Address [facility] de Phone Number MANUALLY TRANSCRIBED RESULTS from Last 3 Months Advance Directives Healthcare Agents on File Name Relationship Healthcare Agent Relationship Communication Austen Snyder Spouse First Alternate Health Care Agent Alexi Thornton Son Second Alternate Health Care Agent Rip Thornton Son Second Alternate Health Care Agent Care Teams Body Service Team Member Relationship Specialty Start Date End Date Skyla Gonzales MD [address], [address] [phone] PCP - General 02/21/13
== END 2024-12-01 08:39 | disposition home or self-care (01) ==
LOC: MAMMO 08:38
DX: Z12.31 Encounter for screening mammogram for malignant neoplasm of breast (principal); Z72.0 Tobacco use
CPT/HCPCS: 71271; 77063; 77067